=== PATIENT | female | born 1940 | race Caucasian/White ===

== ENCOUNTER → 2017-08-27 | Outpatient (CLI) | payer MEDICARE, BC, OTHER ==
[2016-08-13 15:37] VITALS: BP 132/68
--- NOTE | 2017-08-27 14:38 | RAD ---
DATE: 08/27/2017 EXAM: MAMMO GAIL SCREENING BILATERAL HISTORY: Previous right breast cancer COMPARISON: 07/25/2016 This study was interpreted with the benefit of Computerized Aided Detection (CAD). The breast parenchyma is heterogeneously dense, which could reduce sensitivity of mammography. Breast parenchyma level C. FINDINGS: 2-D and 3-D tomosynthesis imaging was performed in CC and MLO projections. No new or enlarging breast densities are seen. There is architectural distortion laterally in both breasts, best seen on the gail images, which appears unchanged. There is a breast biopsy marker medially in the right breast. No new or enlarging breast densities are seen. Benign type calcifications are present in both breasts. No suspicious microcalcifications have developed. IMPRESSION: Stable mammograms without evidence of malignancy. BI-RADS CATEGORY: 2 BENIGN FINDING(S) RECOMMENDED FOLLOW-UP: 12M 12 MONTH FOLLOW-UP PQRS compliance statement: Patient information was entered into a reminder system with a target due date for the next mammogram. Mammography is a sensitive method for finding small breast cancers, but it does not detect them all and is not a substitute for careful clinical examination. A negative mammogram does not negate a clinically suspicious finding and should not result in delay in biopsying a clinically suspicious abnormality. "Our facility is accredited by the [employer] Mammography [employer]."
== END | disposition home or self-care (01) ==
LOC: MAMMO 10:00
PROVIDERS: ATTEND Internal Medicine Hematology & Oncology
DX: Z12.31 Encounter for screening mammogram for malignant neoplasm of breast (principal); C50.919 Malignant neoplasm of unspecified site of unspecified female breast; N64.9 Disorder of breast, unspecified; Z85.3 Personal history of malignant neoplasm of breast
CPT/HCPCS: 77063; 77067

== ENCOUNTER → 2018-09-02 | Outpatient (CLI) | payer MEDICARE, BC, OTHER ==
[2016-08-13 15:37] VITALS: BP 132/68
--- NOTE | 2018-09-02 11:08 | RAD ---
DATE: 09/02/2018 EXAM: DIGITAL SCREEN BILAT W/CAD HISTORY: Previous right breast cancer, screening COMPARISON: 08/27/2017 This study was interpreted with the benefit of Computerized Aided Detection (CAD). Breast Density: HETERO The breast parenchyma is heterogenously dense, which could reduce sensitivity of mammography. Breast parenchyma level C. FINDINGS: No new or enlarging breast densities are evident. Benign type calcifications are present. An old breast biopsy marker is present medially on the right. No suspicious microcalcifications have developed. IMPRESSION: Stable mammograms without evidence of malignancy. BI-RADS CATEGORY: 2 BENIGN FINDING(S) RECOMMENDED FOLLOW-UP: 12M 12 MONTH FOLLOW-UP PQRS compliance statement: Patient information was entered into a reminder system with a target due date for the next mammogram. Mammography is a sensitive method for finding small breast cancers, but it does not detect them all and is not a substitute for careful clinical examination. A negative mammogram does not negate a clinically suspicious finding and should not result in delay in biopsying a clinically suspicious abnormality. "Our facility is accredited by the [employer] Mammography Program."
== END | disposition home or self-care (01) ==
LOC: MAMMO 09:43
PROVIDERS: ATTEND Internal Medicine Hematology & Oncology
DX: Z12.31 Encounter for screening mammogram for malignant neoplasm of breast (principal); Z85.3 Personal history of malignant neoplasm of breast
CPT/HCPCS: 77067

== ENCOUNTER → 2020-09-16 | Outpatient (CLI) | payer MEDICARE, BC, OTHER ==
[2016-08-13 15:37] VITALS: BP 132/68
--- NOTE | 2020-09-16 12:43 | RAD ---
EXAMINATION: US ABDOMEN LTD 09/16/2020 7:44 AM INDICATION: Elevated LFTs TECHNIQUE: Ulloa scale and color Doppler ultrasound images of the right upper quadrant were obtained. COMPARISON: CT abdomen pelvis on 11/27/2016. FINDINGS: Liver: The liver is normal in size measuring 15.5 cm in length. Normal hepatic echogenicity. No foc al liver lesion. Gallbladder: The gallbladder is normal in caliber. There is sludge in the gallbladder. No cholelithi asis.. The gallbladder wall is normal in thickness measuring 3 mm. Bile ducts: The common bile duct is normal measuring 3 mm. No intrahepatic biliary duct dilatation. Right kidney: The right kidney is mildly atrophic measuring 8.2 x 3.8 x 3.5. There is slightly increa sed echogenicity of the right kidney. No hydronephrosis. Other: Inferior vena cava is patent at the level of the liver. The pancreas is normal where visualize d. There is a right pleural effusion. IMPRESSION: 1. Normal appearance of the liver. 2. Sludge in the gallbladder. 3. Mild right renal atrophy and increased echogenicity, which can be seen with medical renal disease. 4. Right pleural effusion. Electronically signed by: Becky Saunders MD (09/16/2020 12:41 PM) [id number]
== END ==
LOC: US 07:40
PROVIDERS: ATTEND Internal Medicine Nephrology
DX: N26.1 Atrophy of kidney (terminal) (principal); N18.6 End stage renal disease; R79.89 Other specified abnormal findings of blood chemistry; J90 Pleural effusion, not elsewhere classified; K86.89 Other specified diseases of pancreas
CPT/HCPCS: 76705

== ENCOUNTER → 2020-10-26 | Outpatient (CLI) | payer MEDICARE, BC, OTHER ==
[2016-08-13 15:37] VITALS: BP 132/68
--- NOTE | 2020-10-26 14:14 | RAD ---
EXAM: Chest, 2 views. HISTORY: Cough. COMPARISON: None. FINDINGS: 2 views of the chest are obtained. There are small right greater than left pleural effusion s with right middle and lower lobe predominant interstitial infiltrate. This is likely superimposed o n chronic interstitial changes. There is emphysema. There is cardiomegaly and evidence of prior CABG and aortic valve surgery. There are chronic rib fractures. There is no pneumothorax. IMPRESSION: 1. Small right greater left pleural effusions and diffuse right middle and lower lobe predominant int erstitial infiltrate likely superimposed on chronic interstitial changes and emphysema. 2. Cardiomegaly and postoperative mediastinal changes. Electronically signed by: Nohemi Haro MD (10/26/2020 2:11 PM) [id number]
== END ==
LOC: RAD 13:54
PROVIDERS: ATTEND Internal Medicine Nephrology
DX: J90 Pleural effusion, not elsewhere classified (principal); R91.8 Other nonspecific abnormal finding of lung field; N18.6 End stage renal disease
CPT/HCPCS: 71046

== ENCOUNTER → 2020-12-07 | Outpatient (CLI) | payer MEDICARE, BC, OTHER ==
[2016-08-13 15:37] VITALS: BP 132/68
--- NOTE | 2020-12-07 13:12 | RAD ---
EXAM: Chest, 2 views. HISTORY: Hypertension. COMPARISON: 10/26/2020 FINDINGS: 2 views of the chest are obtained. There is stable diffuse increased interstitial opacity w ith small bilateral pleural effusions and cardiomegaly. There is a hiatal hernia. There are findings consistent with prior median sternotomy and aortic valve surgery. There is no pneumothorax. There are healed rib fractures. IMPRESSION: Stable diffuse interstitial infiltrate or chronic interstitial changes with small pleura l effusions and cardiomegaly. Electronically signed by: Nohemi Haro MD (12/07/2020 1:09 PM) [id number]
== END ==
LOC: RAD 12:53
PROVIDERS: ATTEND Nurse Practitioner Adult Health
DX: E10.22 Type 1 diabetes mellitus with diabetic chronic kidney disease (principal); I10 Essential (primary) hypertension; N18.6 End stage renal disease; J90 Pleural effusion, not elsewhere classified; I51.7 Cardiomegaly; K44.9 Diaphragmatic hernia without obstruction or gangrene; Z87.81 Personal history of (healed) traumatic fracture
CPT/HCPCS: 71046

== ENCOUNTER → 2021-01-14 | Outpatient (CLI) | payer MEDICARE, BC, OTHER ==
[2016-08-13 15:37] VITALS: BP 132/68
== END ==
LOC: LAB 13:36
PROVIDERS: ATTEND Internal Medicine Nephrology
DX: N18.6 End stage renal disease (principal)
CPT/HCPCS: 36415; 84132

== ENCOUNTER → 2021-02-06 | Outpatient (CLI) | payer MEDICARE, BC, OTHER ==
[2016-08-13 15:37] VITALS: BP 132/68
--- NOTE | 2021-02-06 13:43 | RAD ---
PA and lateral chest. HISTORY: Pneumonia, end-stage renal disease, hypotension, short of breath PA and lateral views were taken of the chest. The heart is enlarged. There is pulmonary vascular jai estion suggesting heart failure. There are bilateral effusions. There is a prominent hiatus hernia be hind the heart. Patient previous aortic valve replacement. IMPRESSION: 1. Cardiomegaly with vascular congestion. 2. Bilateral effusions. 3. Large hiatus hernia. Electronically signed by: Rajesh Bahena MD (02/06/2021 1:41 PM) [facility]
== END ==
LOC: RAD 13:06
PROVIDERS: ATTEND Nurse Practitioner Family
DX: I51.7 Cardiomegaly (principal); J18.9 Pneumonia, unspecified organism; I95.9 Hypotension, unspecified; K44.9 Diaphragmatic hernia without obstruction or gangrene; N18.6 End stage renal disease; Z95.2 Presence of prosthetic heart valve
CPT/HCPCS: 71046